=== PATIENT | female | born 1970 | race Hispanic/Latino ===

== ENCOUNTER 2021-06-12 23:44 | Inpatient (IN) | payer OTHER, SELFPAY ==
[2021-06-12] MEDS ORDERED: Senokot S 8.6-50 MG TAB PO PRN (23:50)
[2021-06-12] MEDS ORDERED: Calcium Carbonate 500 MG ChewTAB PO PRN (23:50)
[2021-06-12] MEDS ORDERED: Zolpidem Tartrate 5 MG TAB PO PRN (23:50)
[2021-06-13 00:29] VITALS: BMI 40.4
[2021-06-13] MEDS ORDERED: Pharmacy to Dose ABX/VANCOMYCIN IVPB PRN (00:38)
[2021-06-13] MEDS ORDERED: Prevnar 13-Val Conj/PF 0.5 ML SYRINGE IM ONE (00:45)
[2021-06-13] MEDS: Ondansetron PF 4 MG/2 ML Vial IVP PRN ×3 (00:45→19:44)
[2021-06-13] MEDS ORDERED: Lactated Ringer's 1,000 ML IV SCH (01:00)
[2021-06-13] MEDS: ALPRAZolam 0.25 MG TAB PO PRN ×2 (01:25→22:15)
[2021-06-13 03:29] LABS: #Monocytes 0.7 10x3/uL (0.0-1.1); #Neutrophils 9.6 10x3/uL (1.5-8.4); %Basophils 0.3 % (0.0-2.0); %Eosinophils 0.2 % (0.0-6.0); %Lymphocytes 5.9 % (18.0-47.0); %Monocytes 6.3 % (0.0-10.0); %Neutrophils 86.7 % (40.0-75.0); Hemoglobin 11.6 g/dL (12.0-15.5); Mean Corpuscular HGB CONC 33.1 g/dL (32.0-36.0); Mean Corpuscular Hemoglobin 29.1 pg (27.0-33.0); Mean Corpuscular Volume 87.7 fl (81.6-98.3); Mean Platelet Volume 11.1 fl (7.4-10.4); Platelet Count 257 10x3/uL (150-450); RBC Distribution Width 14.5 % (11.5-14.5); Red Blood Cell (RBC) Count 3.99 10x6/uL (3.90-5.03); White Blood Cell (WBC) Count 11.1 10x3/uL (3.5-10.5)
[2021-06-13 03:39] LABS: Anion Gap 13 mmol/L (10-20); BUN (Urea Nitrogen) 13 mg/dL (9.8-20.1); Calc. Creatinine Clearance 118 mL/min (70-130); Calcium 8.6 mg/dL (7.8-10.44); Carbon Dioxide 20 mmol/L (22-29); Chloride 107 mmol/L (98-107); Glucose 93 mg/dL (70-105); Sodium 136 mmol/L (136-145)
[2021-06-13] MEDS: Acetaminophen 325 MG TAB PO PRN ×2 (04:08→08:50)
[2021-06-13] MEDS: Guaifenesin DM 100-10/5 ML UDCUP PO PRN (04:09)
[2021-06-13 08:36] LABS: Legionella Urinary Ag Negative (Negative); Strep pneumo Urine Ag NEGATIVE (NEGATIVE)
[2021-06-13] MEDS: Famotidine 20 MG TAB PO SCH ×2 (08:47→22:05)
[2021-06-13] MEDS: Topiramate 25 MG TAB PO SCH ×2 (08:47→22:05)
[2021-06-13] MEDS: predniSONE 10 MG TAB PO SCH (08:48)
[2021-06-13] MEDS: Enoxaparin Sodium 40 MG/0.4 ML SYRINGE SC SCH (08:48)
[2021-06-13 08:59] LABS: SARS-CoV-2 NAA Rapid Test Not Detected (NotDetected)
[2021-06-13] MEDS: Cefepime 1 GM in Sodium Chloride 0.9% 100 ML IVPB SCH ×2 (09:23→22:02)
[2021-06-13] MEDS: traMADol HCl 50 MG TAB PO PRN ×2 (10:22→15:58)
[2021-06-13] MEDS: Lidocaine 5% Patch TD SCH (17:06)
[2021-06-13] MEDS: Gabapentin 400 MG CAP PO SCH (22:04)
[2021-06-13] MEDS: Escitalopram Oxalate 20 mg Tablet PO SCH (22:05)
[2021-06-13] MEDS: traZODone HCl 50 MG TAB PO SCH (22:05)
[2021-06-14] MEDS: HYDROcodone/Acetaminophen 5/325 mg Tablet PO PRN ×2 (01:07→11:43)
[2021-06-14] MEDS ORDERED: VANCOMYCIN 1.5 GM in Sodium Chloride 0.9% 500 ML IVPB SCH (03:00)
[2021-06-14] MEDS: Transdermal Patch Removal TOP SCH (05:00)
[2021-06-14 05:24] LABS: Anion Gap 16 mmol/L (10-20); BUN (Urea Nitrogen) 8 mg/dL (9.8-20.1); Calc. Creatinine Clearance 118 mL/min (70-130); Carbon Dioxide 20 mmol/L (22-29); Chloride 102 mmol/L (98-107); Glucose 83 mg/dL (70-105); Magnesium 1.8 mg/dL (1.6-2.6); Potassium 3.4 mmol/L (3.5-5.1); Sodium 135 mmol/L (136-145)
[2021-06-14 05:32] LABS: Hemoglobin 11.8 g/dL (12.0-15.5); Mean Corpuscular Hemoglobin 28.9 pg (27.0-33.0); Mean Corpuscular Volume 87.5 fl (81.6-98.3); Mean Platelet Volume 10.9 fl (7.4-10.4); Platelet Count 274 10x3/uL (150-450); RBC Distribution Width 14.4 % (11.5-14.5); Red Blood Cell (RBC) Count 4.09 10x6/uL (3.90-5.03); White Blood Cell (WBC) Count 9.4 10x3/uL (3.5-10.5)
[2021-06-14 05:34] LABS: CRP (Inflammatory) 41.27 mg/dL (= or < 0.5)
[2021-06-14 05:59] LABS: MDiff Complete? YES
[2021-06-14 06:04] LABS: Band 7 % (5-11); Lymphocytes 13 % (21-51); Monocytes 12 % (0-10); Neutrophil 68 % (42-75)
[2021-06-14] MEDS ORDERED: Potassium Chloride 20 MEQ TAB PO SCH (08:00)
[2021-06-14] MEDS: Famotidine 20 MG TAB PO SCH ×2 (08:53→21:22)
[2021-06-14] MEDS: Enoxaparin Sodium 40 MG/0.4 ML SYRINGE SC SCH (08:53)
[2021-06-14] MEDS: Topiramate 25 MG TAB PO SCH ×2 (08:53→21:22)
[2021-06-14] MEDS: predniSONE 10 MG TAB PO SCH (08:54)
[2021-06-14] MEDS: Cefepime 1 GM in Sodium Chloride 0.9% 100 ML IVPB SCH ×2 (09:08→21:21)
[2021-06-14] MEDS ORDERED: Lidocaine 5% Patch TD SCH (11:21)
[2021-06-14] MEDS: Lidocaine 5% Patch TD SCH (17:33)
[2021-06-14] MEDS: traZODone HCl 50 MG TAB PO SCH (21:23)
[2021-06-14] MEDS: Escitalopram Oxalate 20 mg Tablet PO SCH (21:23)
[2021-06-14] MEDS: Gabapentin 400 MG CAP PO SCH (21:23)
[2021-06-15] MEDS: HYDROcodone/Acetaminophen 5/325 mg Tablet PO PRN ×2 (01:08→13:46)
[2021-06-15 02:20] LABS: Vancomycin, Trough 8.1 ug/mL
[2021-06-15] MEDS ORDERED: Vancomycin HCl 1 GM in Sodium Chloride 0.9% 250 ML 250 ML IVPB SCH (03:00)
[2021-06-15] MEDS: Acetaminophen 325 MG TAB PO PRN ×2 (05:30→20:55)
[2021-06-15] MEDS: Transdermal Patch Removal TOP SCH (05:30)
[2021-06-15] MEDS: Cefepime 1 GM in Sodium Chloride 0.9% 100 ML IVPB SCH ×2 (09:22→22:30)
[2021-06-15] MEDS: predniSONE 10 MG TAB PO SCH (09:22)
[2021-06-15] MEDS: Topiramate 25 MG TAB PO SCH ×2 (09:22→20:56)
[2021-06-15] MEDS: Famotidine 20 MG TAB PO SCH ×2 (09:22→20:55)
[2021-06-15] MEDS: Enoxaparin Sodium 40 MG/0.4 ML SYRINGE SC SCH (09:22)
[2021-06-15] MEDS: methylPREDNISolone Sod Succ 40 MG VIAL IVP SCH ×2 (15:32→22:14)
[2021-06-15] MEDS: Lidocaine 5% Patch TD SCH (16:50)
[2021-06-15] MEDS: Escitalopram Oxalate 20 mg Tablet PO SCH (20:55)
[2021-06-15] MEDS: Gabapentin 400 MG CAP PO SCH (20:56)
[2021-06-15] MEDS: traZODone HCl 50 MG TAB PO SCH (21:42)
[2021-06-16] MEDS: HYDROcodone/Acetaminophen 5/325 mg Tablet PO PRN ×5 (00:57→21:38)
[2021-06-16 04:27] LABS: #Monocytes 0.1 10x3/uL (0.0-1.1); %Basophils 0.2 % (0.0-2.0); %Monocytes 1.8 % (0.0-10.0); %Neutrophils 89.7 % (40.0-75.0); Hemoglobin 12.4 g/dL (12.0-15.5); Mean Corpuscular HGB CONC 32.9 g/dL (32.0-36.0); Mean Corpuscular Hemoglobin 28.8 pg (27.0-33.0); Mean Corpuscular Volume 87.7 fl (81.6-98.3); Mean Platelet Volume 10.6 fl (7.4-10.4); Platelet Count 347 10x3/uL (150-450); RBC Distribution Width 14.1 % (11.5-14.5); White Blood Cell (WBC) Count 5.6 10x3/uL (3.5-10.5)
[2021-06-16 04:40] LABS: Anion Gap 13 mmol/L (10-20); BUN (Urea Nitrogen) 12 mg/dL (9.8-20.1); CRP (Inflammatory) 19.99 mg/dL (= or < 0.5); Calc. Creatinine Clearance 130 mL/min (70-130); Calcium 9.2 mg/dL (7.8-10.44); Carbon Dioxide 20 mmol/L (22-29); Chloride 109 mmol/L (98-107); Glucose 180 mg/dL (70-105); Potassium 4.3 mmol/L (3.5-5.1); Sodium 138 mmol/L (136-145)
[2021-06-16] MEDS: Transdermal Patch Removal TOP SCH (05:23)
[2021-06-16] MEDS: methylPREDNISolone Sod Succ 40 MG VIAL IVP SCH ×2 (06:22→09:05)
[2021-06-16] MEDS: Famotidine 20 MG TAB PO SCH ×2 (09:03→21:37)
[2021-06-16] MEDS: Enoxaparin Sodium 40 MG/0.4 ML SYRINGE SC SCH (09:03)
[2021-06-16] MEDS: Cefepime 1 GM in Sodium Chloride 0.9% 100 ML IVPB SCH ×2 (09:03→21:36)
[2021-06-16] MEDS: Topiramate 25 MG TAB PO SCH ×2 (09:03→21:36)
[2021-06-16] MEDS: Guaifenesin DM 100-10/5 ML UDCUP PO PRN ×2 (09:09→21:42)
[2021-06-16 14:27] LABS: Vancomycin, Trough 25.7 ug/mL
[2021-06-16] MEDS: Lidocaine 5% Patch TD SCH (17:01)
[2021-06-16] MEDS: Escitalopram Oxalate 20 mg Tablet PO SCH (21:37)
[2021-06-16] MEDS: traZODone HCl 50 MG TAB PO SCH (21:37)
[2021-06-16] MEDS: Gabapentin 400 MG CAP PO SCH (21:37)
[2021-06-17 04:41] LABS: #Monocytes 0.7 10x3/uL (0.0-1.1); #Neutrophils 9.4 10x3/uL (1.5-8.4); %Basophils 0.2 % (0.0-2.0); %Lymphocytes 8.3 % (18.0-47.0); %Monocytes 6.5 % (0.0-10.0); %Neutrophils 83.5 % (40.0-75.0); Hemoglobin 12.2 g/dL (12.0-15.5); Mean Corpuscular Hemoglobin 28.9 pg (27.0-33.0); Mean Corpuscular Volume 87.7 fl (81.6-98.3); Mean Platelet Volume 10.8 fl (7.4-10.4); Platelet Count 387 10x3/uL (150-450); RBC Distribution Width 14.1 % (11.5-14.5); Red Blood Cell (RBC) Count 4.22 10x6/uL (3.90-5.03); White Blood Cell (WBC) Count 11.3 10x3/uL (3.5-10.5)
[2021-06-17 04:44] LABS: Vancomycin, Random 15.5 ug/mL (See Comment)
[2021-06-17 04:52] LABS: Anion Gap 13 mmol/L (10-20); BUN (Urea Nitrogen) 14 mg/dL (9.8-20.1); Calc. Creatinine Clearance 130 mL/min (70-130); Calcium 9.1 mg/dL (7.8-10.44); Carbon Dioxide 21 mmol/L (22-29); Chloride 112 mmol/L (98-107); Glucose 104 mg/dL (70-105); Potassium 3.6 mmol/L (3.5-5.1); Sodium 142 mmol/L (136-145)
[2021-06-17] MEDS: Transdermal Patch Removal TOP SCH (05:15)
[2021-06-17 08:49] VITALS: BP 167/84; TEMP 96.3
[2021-06-17] MEDS: HYDROcodone/Acetaminophen 5/325 mg Tablet PO PRN (09:17)
[2021-06-17] MEDS: Topiramate 25 MG TAB PO SCH (09:19)
[2021-06-17] MEDS: Famotidine 20 MG TAB PO SCH (09:20)
[2021-06-17] MEDS: Enoxaparin Sodium 40 MG/0.4 ML SYRINGE SC SCH (09:20)
[2021-06-17] MEDS: Cefepime 1 GM in Sodium Chloride 0.9% 100 ML IVPB SCH ×2 (09:21→10:05)
[2021-06-17] MEDS: methylPREDNISolone Sod Succ 40 MG VIAL IVP SCH (09:21)
[2021-06-17] MEDS ORDERED: Vancomycin 1.5 GRAM/300 ML BAG 1.5 GM in Premix Bag 1 BAG IVPB SCH (15:00)
[2021-06-22 23:36] LABS: Mycoplasma pneumoniae IgG AB 200 U/mL (0-99); Mycoplasma pneumoniae IgM AB Less than 770 U/mL (0-769)
== END 2021-06-17 13:02 | disposition home or self-care (01) | DRG 871 ==
LOC: CSHTELE 23:44
PROVIDERS: ADMIT Student in an Organized Health Care Education/Training Program; ATTEND Internal Medicine
DX: A41.9 Sepsis, unspecified organism (principal); J18.9 Pneumonia, unspecified organism; J96.01 Acute respiratory failure with hypoxia; D84.9 Immunodeficiency, unspecified; M06.9 Rheumatoid arthritis, unspecified; M32.14 Glomerular disease in systemic lupus erythematosus; N18.1 Chronic kidney disease, stage 1; F41.9 Anxiety disorder, unspecified; F32.A Depression, unspecified; G89.29 Other chronic pain; I12.9 Hypertensive chronic kidney disease with stage 1 through stage 4 chronic kidney disease, or unspecified chronic kidney disease; M54.30 Sciatica, unspecified side; E86.0 Dehydration; E87.6 Hypokalemia; Z20.822 Contact with and (suspected) exposure to COVID-19; Z79.899 Other long term (current) drug therapy; Z90.710 Acquired absence of both cervix and uterus
CPT/HCPCS: 36415; 71046; 80048; 80202; 83735; 83880; 84145; 85025; 85652; 86140; 87081; 87449; 87899; 93005; 93010; 94760; J0692; J1650; J1956; J2405; J2920; J3370; J3490; J7030; J7050; J7120; J7512; U0002

== ENCOUNTER 2021-08-24 10:39 | Inpatient (IN) | payer OTHER ==
[2021-08-24] MEDS ORDERED: Piperacillin/Tazobactam 3.375 GM VIAL ONE (11:25)
[2021-08-24] MEDS ORDERED: Morphine 4 MG/ML VIAL ONE ×2 (11:25→14:22)
[2021-08-24 11:34] LABS: #Basophils 0.1 10x3/uL (0.0-0.2); #Eosinphils 0.1 10x3/uL (0.0-0.5); #Monocytes 1.4 10x3/uL (0.0-1.1); #Neutrophils 13.3 10x3/uL (1.5-8.4); %Basophils 0.3 % (0.0-2.0); %Eosinophils 0.5 % (0.0-6.0); %Lymphocytes 9.8 % (18.0-47.0); %Monocytes 8.3 % (0.0-10.0); %Neutrophils 80.4 % (40.0-75.0); Hemoglobin 14.2 g/dL (12.0-15.5); Mean Corpuscular HGB CONC 33.2 g/dL (32.0-36.0); Mean Corpuscular Volume 87.3 fl (81.6-98.3); Mean Platelet Volume 11.7 fl (7.4-10.4); Platelet Count 284 10x3/uL (150-450); RBC Distribution Width 14.6 % (11.5-14.5); White Blood Cell (WBC) Count 16.6 10x3/uL (3.5-10.5)
[2021-08-24] MEDS ORDERED: Ondansetron PF 4 MG/2 ML Vial ONE (11:38)
[2021-08-24 11:53] LABS: ALT (SGPT) 20 U/L (8-55); AST (SGOT) 19 U/L (5-34); Albumin 3.9 g/dL (3.5-5.0); Alkaline Phosphatase 76 U/L (40-110); Anion Gap 21 mmol/L (10-20); BUN (Urea Nitrogen) 26 mg/dL (9.8-20.1); Bilirubin, Total 0.7 mg/dL (0.2-1.2); CK (CPK) 22 U/L (29-168); Calc. Creatinine Clearance 0 mL/min (70-130); Calcium 9.4 mg/dL (7.8-10.44); Carbon Dioxide 23 mmol/L (22-29); Chloride 96 mmol/L (98-107); Glucose 88 mg/dL (70-105); Lipase 34 U/L (8-78); Protein, Total 7.9 g/dL (6.0-8.3); Sodium 137 mmol/L (136-145)
[2021-08-24 13:14] LABS: Bilirubin Neg (Negative); Blood, Urine 10 (Negative); Clarity Slightly Cloudy (Clear); Glucose, Urine (Dipstick) Normal (Negative); Ketone, Urine Negative (Negative); Leukocyte 500 (Negative); Nitrite Negative (Negative); Protein, Urine (Dipstick) 15 mg/dl (Neg-Trace); Specific Gravity, Urine 1.015 (1.002-1.036); Urobilinogen Normal mg/dL (Less than 2)
[2021-08-24 13:23] LABS: Bacteria/HPF 2+ HPF (None Seen); RBC/HPF 0-3 HPF (0-3)
[2021-08-24] MEDS ORDERED: Ondansetron PF 4 MG/2 ML Vial IVP PRN (13:50)
[2021-08-24] MEDS ORDERED: Dexamethasone 10 MG/ML VIAL ONE (13:55)
[2021-08-24] MEDS ORDERED: Metoclopramide HCl 10 MG/2 ML VIAL ONE (13:56)
[2021-08-24 14:01] LABS: SARS-CoV-2 NAA Rapid Test Not Detected (NotDetected)
[2021-08-24] MEDS ORDERED: Potassium Chloride 20 MEQ in Premix Bag 1 BAG IVPB SCH (15:00)
[2021-08-24] MEDS: Sodium Chloride 0.9% 1,000 ML IV SCH ×2 (15:15→23:07)
[2021-08-24 15:30] LABS: Magnesium 1.9 mg/dL (1.6-2.6)
[2021-08-24] MEDS: Piperacillin/Tazobactam 3.375 GM in Sodium Chloride 0.9% 100 ML IVPB SCH (15:50)
[2021-08-24 17:04] VITALS: BMI 37.5
[2021-08-24 18:10] VITALS: BP 107/71; TEMP 97
[2021-08-24 18:58] LABS: Potassium 3.6 mmol/L (3.5-5.1)
[2021-08-24] MEDS ORDERED: Prevnar 13-Val Conj/PF 0.5 ML SYRINGE IM ONE (19:00)
[2021-08-24] MEDS: Famotidine 20 MG TAB PO SCH (20:56)
[2021-08-24] MEDS: predniSONE 10 MG TAB PO SCH (20:56)
[2021-08-24] MEDS: ALPRAZolam 0.25 MG TAB PO PRN (22:54)
[2021-08-25] MEDS: Sodium Chloride 0.9% 1,000 ML IV SCH ×2 (00:10→16:14)
[2021-08-25] MEDS: Piperacillin/Tazobactam 3.375 GM in Sodium Chloride 0.9% 100 ML IVPB SCH ×3 (00:15→16:26)
[2021-08-25 04:05] LABS: #Monocytes 0.2 10x3/uL (0.0-1.1); #Neutrophils 12.5 10x3/uL (1.5-8.4); %Basophils 0.2 % (0.0-2.0); %Lymphocytes 3.5 % (18.0-47.0); %Monocytes 1.2 % (0.0-10.0); %Neutrophils 94.3 % (40.0-75.0); Hemoglobin 13.3 g/dL (12.0-15.5); Mean Corpuscular Hemoglobin 28.5 pg (27.0-33.0); Mean Corpuscular Volume 88.9 fl (81.6-98.3); Mean Platelet Volume 11.3 fl (7.4-10.4); Platelet Count 255 10x3/uL (150-450); RBC Distribution Width 14.4 % (11.5-14.5); Red Blood Cell (RBC) Count 4.67 10x6/uL (3.90-5.03); White Blood Cell (WBC) Count 13.2 10x3/uL (3.5-10.5)
[2021-08-25 04:27] LABS: Anion Gap 16 mmol/L (10-20); BUN (Urea Nitrogen) 16 mg/dL (9.8-20.1); Calc. Creatinine Clearance 103 mL/min (70-130); Calcium 8.5 mg/dL (7.8-10.44); Carbon Dioxide 21 mmol/L (22-29); Chloride 108 mmol/L (98-107); Glucose 118 mg/dL (70-105); Potassium 3.8 mmol/L (3.5-5.1); Sodium 141 mmol/L (136-145)
[2021-08-25] MEDS: Famotidine 20 MG TAB PO SCH ×2 (08:27→21:00)
[2021-08-25] MEDS: Acetaminophen 325 MG TAB PO PRN (12:23)
[2021-08-25] MEDS ORDERED: Enoxaparin Sodium 40 MG/0.4 ML SYRINGE SC SCH (16:00)
[2021-08-25] MEDS: Famotidine 20 MG TAB ONE ×2 (20:52→21:00)
[2021-08-25] MEDS: Nystatin Powder 15 GM BOT TOP SCH (20:53)
[2021-08-25] MEDS: ALPRAZolam 0.25 MG TAB PO PRN (20:56)
[2021-08-25] MEDS: predniSONE 10 MG TAB PO SCH (21:00)
[2021-08-26] MEDS: Acetaminophen 325 MG TAB PO PRN ×2 (00:21→04:38)
[2021-08-26] MEDS: Piperacillin/Tazobactam 3.375 GM in Sodium Chloride 0.9% 100 ML IVPB SCH ×2 (00:26→07:46)
[2021-08-26 04:25] LABS: #Monocytes 0.6 10x3/uL (0.0-1.1); #Neutrophils 9.8 10x3/uL (1.5-8.4); %Basophils 0.1 % (0.0-2.0); %Eosinophils 0.1 % (0.0-6.0); %Monocytes 5.2 % (0.0-10.0); %Neutrophils 87.2 % (40.0-75.0); Hemoglobin 11.8 g/dL (12.0-15.5); Mean Corpuscular HGB CONC 33.1 g/dL (32.0-36.0); Mean Corpuscular Hemoglobin 28.2 pg (27.0-33.0); Mean Corpuscular Volume 85.2 fl (81.6-98.3); Mean Platelet Volume 11.2 fl (7.4-10.4); Platelet Count 252 10x3/uL (150-450); RBC Distribution Width 14.3 % (11.5-14.5); Red Blood Cell (RBC) Count 4.18 10x6/uL (3.90-5.03); White Blood Cell (WBC) Count 11.2 10x3/uL (3.5-10.5)
[2021-08-26 04:37] LABS: Anion Gap 13 mmol/L (10-20); BUN (Urea Nitrogen) 13 mg/dL (9.8-20.1); Calc. Creatinine Clearance 117 mL/min (70-130); Calcium 8.7 mg/dL (7.8-10.44); Carbon Dioxide 23 mmol/L (22-29); Chloride 110 mmol/L (98-107); Glucose 124 mg/dL (70-105); Potassium 3.3 mmol/L (3.5-5.1); Sodium 143 mmol/L (136-145)
[2021-08-26] MEDS ORDERED: Potassium Chloride 20 MEQ TAB PO SCH (06:15)
[2021-08-26] MEDS: Famotidine 20 MG TAB PO SCH (07:46)
[2021-08-26] MEDS: ALPRAZolam 0.25 MG TAB PO PRN (07:46)
[2021-08-26] MEDS: Nystatin Powder 15 GM BOT TOP SCH (08:28)
[2021-08-26] MEDS ORDERED: Amlodipine 5 MG TAB PO SCH (12:15)
== END 2021-08-26 15:55 | disposition home or self-care (01) | DRG 392 ==
LOC: CSHERS 10:39 → CSHICU 14:09
PROVIDERS: ADMIT Internal Medicine; ATTEND Internal Medicine
DX: K57.32 Diverticulitis of large intestine without perforation or abscess without bleeding (principal); D84.9 Immunodeficiency, unspecified; N17.9 Acute kidney failure, unspecified; E86.0 Dehydration; E87.6 Hypokalemia; F41.9 Anxiety disorder, unspecified; F32.A Depression, unspecified; M06.9 Rheumatoid arthritis, unspecified; I12.9 Hypertensive chronic kidney disease with stage 1 through stage 4 chronic kidney disease, or unspecified chronic kidney disease; M32.9 Systemic lupus erythematosus, unspecified; N18.9 Chronic kidney disease, unspecified; Z20.822 Contact with and (suspected) exposure to COVID-19; Z79.899 Other long term (current) drug therapy; Z87.01 Personal history of pneumonia (recurrent); Z98.891 History of uterine scar from previous surgery; Z98.890 Other specified postprocedural states; Z79.52 Long term (current) use of systemic steroids
CPT/HCPCS: 36415; 74176; 80048; 80053; 81003; 81015; 82550; 83605; 83690; 83735; 85025; 87040; 87086; 93005; 96361; 96365; 96367; 96375; 96376; J1100; J1650; J2270; J2405; J2543; J2765; J3480; J3490; J7050; J7512; U0002

== ENCOUNTER 2021-09-07 20:43 | Emergency (ER) | payer OTHER, SELFPAY ==
[2021-09-07 21:57] LABS: Hemoglobin 13.5 g/dL (12.0-15.5); Mean Corpuscular HGB CONC 32.9 g/dL (32.0-36.0); Mean Corpuscular Hemoglobin 28.3 pg (27.0-33.0); Mean Platelet Volume 11.1 fl (7.4-10.4); Platelet Count 330 10x3/uL (150-450); RBC Distribution Width 15.1 % (11.5-14.5); Red Blood Cell (RBC) Count 4.77 10x6/uL (3.90-5.03); White Blood Cell (WBC) Count 7.3 10x3/uL (3.5-10.5)
[2021-09-07 21:59] LABS: MDiff Complete? YES
[2021-09-07 22:12] LABS: ALT (SGPT) 33 U/L (8-55); AST (SGOT) 33 U/L (5-34); Albumin 3.8 g/dL (3.5-5.0); Alkaline Phosphatase 84 U/L (40-110); Anion Gap 17 mmol/L (10-20); BUN (Urea Nitrogen) 17 mg/dL (9.8-20.1); Bilirubin, Total 0.3 mg/dL (0.2-1.2); Calc. Creatinine Clearance 0 mL/min (70-130); Carbon Dioxide 26 mmol/L (22-29); Chloride 102 mmol/L (98-107); Globulin 3.1 g/dL (2.4-3.5); Glucose 103 mg/dL (70-105); Protein, Total 6.9 g/dL (6.0-8.3); Sodium 142 mmol/L (136-145)
[2021-09-07 22:14] LABS: Potassium 2.8 mmol/L (3.5-5.1)
[2021-09-07 22:27] LABS: Eosinophils 2 % (0-10); Lymphocytes 25 % (21-51); Monocytes 13 % (0-10); Neutrophil 59 % (42-75); Reactive Lymphocytes 1 % (0-10)
[2021-09-07 22:29] LABS: Platelet Morphology Comment Appears Adequate; RBC Morphology Normal
[2021-09-07] MEDS ORDERED: Potassium Chloride 20 MEQ TAB ONE (22:33)
== END 2021-09-07 22:40 | disposition home or self-care (01) ==
LOC: CSHERS 20:43
DX: E87.6 Hypokalemia (principal); I12.9 Hypertensive chronic kidney disease with stage 1 through stage 4 chronic kidney disease, or unspecified chronic kidney disease; N18.9 Chronic kidney disease, unspecified
CPT/HCPCS: 80053; 85025; 99284

== ENCOUNTER 2021-09-15 09:45 | Observation (INO) | payer SELFPAY ==
[~2021-09-15 09:45] MED LIST: Iopamidol 300 61% 100 ML VIAL FS ONE
[2021-09-15] MEDS ORDERED: Ondansetron PF 4 MG/2 ML Vial ONE (11:04)
[2021-09-15] MEDS ORDERED: Morphine 4 MG/ML VIAL ONE ×2 (11:04→12:18)
[2021-09-15 11:05] LABS: #Basophils 0.1 10x3/uL (0.0-0.2); #Eosinphils 0.1 10x3/uL (0.0-0.5); #Monocytes 1.2 10x3/uL (0.0-1.1); #Neutrophils 9.8 10x3/uL (1.5-8.4); %Basophils 0.4 % (0.0-2.0); %Eosinophils 0.8 % (0.0-6.0); %Lymphocytes 11.6 % (18.0-47.0); %Monocytes 9.3 % (0.0-10.0); %Neutrophils 77.2 % (40.0-75.0); Hemoglobin 12.9 g/dL (12.0-15.5); Mean Corpuscular HGB CONC 32.1 g/dL (32.0-36.0); Mean Corpuscular Hemoglobin 28.4 pg (27.0-33.0); Mean Corpuscular Volume 88.5 fl (81.6-98.3); Platelet Count 253 10x3/uL (150-450); RBC Distribution Width 15.4 % (11.5-14.5); Red Blood Cell (RBC) Count 4.54 10x6/uL (3.90-5.03); White Blood Cell (WBC) Count 12.7 10x3/uL (3.5-10.5)
[2021-09-15 11:24] LABS: ALT (SGPT) 19 U/L (8-55); AST (SGOT) 14 U/L (5-34); Albumin 3.5 g/dL (3.5-5.0); Alkaline Phosphatase 66 U/L (40-110); Anion Gap 15 mmol/L (10-20); BUN (Urea Nitrogen) 12 mg/dL (9.8-20.1); Bilirubin, Total 0.6 mg/dL (0.2-1.2); Calc. Creatinine Clearance 0 mL/min (70-130); Calcium 9.1 mg/dL (7.8-10.44); Carbon Dioxide 23 mmol/L (22-29); Chloride 104 mmol/L (98-107); Estimated GFR 59; Globulin 2.8 g/dL (2.4-3.5); Glucose 86 mg/dL (70-105); Lipase 31 U/L (8-78); Potassium 4.2 mmol/L (3.5-5.1); Protein, Total 6.3 g/dL (6.0-8.3); Sodium 138 mmol/L (136-145)
[2021-09-15 12:20] LABS: Bilirubin Neg (Negative); Blood, Urine 10 (Negative); Clarity Clear (Clear); Glucose, Urine (Dipstick) Normal (Negative); Ketone, Urine 5 mg/dL (Negative); Leukocyte 500 (Negative); Nitrite Negative (Negative); Protein, Urine (Dipstick) 15 mg/dl (Neg-Trace); Urobilinogen Normal mg/dL (Less than 2)
[2021-09-15 12:35] LABS: Bacteria/HPF 3+ HPF (None Seen); Mucous/LPF 2+ LPF (<2+); RBC/HPF 0-3 HPF (0-3); Transitional Epithelial 0-3 HPF (None Seen); WBC/HPF 21-50 HPF (0-3)
[2021-09-15] MEDS ORDERED: metroNIDAZOLE 500 MG/100 ML BAG ONE (12:38)
[2021-09-15] MEDS ORDERED: Ondansetron ODT 4 MG TAB PO PRN (13:22)
[2021-09-15] MEDS ORDERED: Ondansetron PF 4 MG/2 ML Vial IVP PRN (13:22)
[2021-09-15] MEDS ORDERED: hydrALAZINE 20 MG/ML VIAL SLOW IVP PRN (13:36)
[2021-09-15] MEDS ORDERED: Vancomycin 25 MG/ML Oral SOLN PO SCH (14:00)
[2021-09-15] MEDS ORDERED: Piperacillin/Tazobactam 3.375 GM in Sodium Chloride 0.9% 100 ML IVPB SCH ×2 (14:00→16:00)
[2021-09-15 14:02] LABS: SARS-CoV-2 NAA Rapid Test Not Detected (NotDetected)
[2021-09-15 15:09] VITALS: BMI 35.9
[2021-09-15] MEDS: Sodium Chloride 0.9% 1,000 ML IV SCH (16:46)
[2021-09-15] MEDS: Vancomycin 25 MG/ML Oral SOLN PO SCH ×2 (16:48→21:34)
[2021-09-15] MEDS: Morphine 2 MG/ML VIAL SLOW IVP PRN (17:53)
[2021-09-15] MEDS: Piperacillin/Tazobactam 3.375 GM in Sodium Chloride 0.9% 100 ML IVPB SCH (21:34)
[2021-09-16] MEDS: Sodium Chloride 0.9% 1,000 ML IV SCH ×3 (03:48→22:27)
[2021-09-16] MEDS: Piperacillin/Tazobactam 3.375 GM in Sodium Chloride 0.9% 100 ML IVPB SCH ×3 (04:41→21:06)
[2021-09-16] MEDS: Vancomycin 25 MG/ML Oral SOLN PO SCH ×2 (04:41→08:23)
[2021-09-16 05:41] LABS: #Monocytes 0.6 10x3/uL (0.0-1.1); #Neutrophils 8.7 10x3/uL (1.5-8.4); %Basophils 0.3 % (0.0-2.0); %Eosinophils 0.2 % (0.0-6.0); %Lymphocytes 5.6 % (18.0-47.0); %Monocytes 5.6 % (0.0-10.0); %Neutrophils 87.7 % (40.0-75.0); Hemoglobin 12.7 g/dL (12.0-15.5); Mean Corpuscular HGB CONC 30.9 g/dL (32.0-36.0); Mean Corpuscular Hemoglobin 28.3 pg (27.0-33.0); Mean Corpuscular Volume 91.5 fl (81.6-98.3); Platelet Count 221 10x3/uL (150-450); RBC Distribution Width 15.2 % (11.5-14.5); Red Blood Cell (RBC) Count 4.49 10x6/uL (3.90-5.03); White Blood Cell (WBC) Count 9.9 10x3/uL (3.5-10.5)
[2021-09-16] MEDS: Acetaminophen 325 MG TAB PO PRN ×3 (05:57→21:07)
[2021-09-16 06:04] LABS: Anion Gap 15 mmol/L (10-20); BUN (Urea Nitrogen) 7 mg/dL (9.8-20.1); Calc. Creatinine Clearance 102 mL/min (70-130); Calcium 8.5 mg/dL (7.8-10.44); Carbon Dioxide 15 mmol/L (22-29); Chloride 114 mmol/L (98-107); Estimated GFR 79; Glucose 114 mg/dL (70-105); Potassium 4.6 mmol/L (3.5-5.1); Sodium 139 mmol/L (136-145)
[2021-09-16] MEDS ORDERED: Sodium Chloride 0.9% 1,000 ML IV SCH (07:30)
[2021-09-16] MEDS: Famotidine/PF 20 mg/2ml Vial SLOW IVP SCH (08:22)
[2021-09-16 09:43] LABS: ALT (SGPT) 10 U/L (8-55); AST (SGOT) 11 U/L (5-34); Alkaline Phosphatase 56 U/L (40-110); Bilirubin, Direct 0.2 mg/dL (0.1-0.3); Bilirubin, Total 0.4 mg/dL (0.2-1.2); Protein, Total 5.9 g/dL (6.0-8.3)
[2021-09-16] MEDS ORDERED: ALPRAZolam 0.25 MG TAB PO PRN (10:04)
[2021-09-16] MEDS ORDERED: traMADol HCl 50 MG TAB PO PRN (10:04)
[2021-09-16 12:32] LABS: Hemoglobin A1c 5.6 % (4.0-6.0)
[2021-09-16] MEDS ORDERED: predniSONE 10 MG TAB PO SCH (21:00)
[2021-09-16] MEDS: Topiramate 25 MG TAB PO SCH (21:06)
[2021-09-16 21:43] LABS: Campy jejuni + coli by PCR Negative (Negative); STEC Shiga Toxin 1+2 Negative (Negative); Salmonella spp. by PCR Negative (Negative); Shigella spp + EIEC by PCR Negative (Negative)
[2021-09-16] MEDS: Morphine 2 MG/ML VIAL SLOW IVP PRN (22:04)
[2021-09-17] MEDS: Piperacillin/Tazobactam 3.375 GM in Sodium Chloride 0.9% 100 ML IVPB SCH (03:57)
[2021-09-17 04:10] LABS: Actual Bicarbonate (HCO3v) 19 mEq/L (22-28); Base Excess -5.9 mEq/L (-2.0 to +3.0); Calcium, Ionized (venous) 1.15 mmol/L (1.16-1.32); Chloride (VBG) 111 mmol/L (98-106); Hemoglobin (Hb) 12.8 g/dL (11.7-16.0); Potassium (VBG) 3.76 mmol/L (3.70-5.30); Puncture Site Other Site; pH (venous) 7.36 (7.32-7.43)
[2021-09-17 04:16] LABS: #Eosinphils 0.1 10x3/uL (0.0-0.5); #Monocytes 0.3 10x3/uL (0.0-1.1); #Neutrophils 7.7 10x3/uL (1.5-8.4); %Basophils 0.3 % (0.0-2.0); %Eosinophils 0.7 % (0.0-6.0); %Lymphocytes 4.9 % (18.0-47.0); %Monocytes 3.4 % (0.0-10.0); Hemoglobin 11.6 g/dL (12.0-15.5); Mean Corpuscular HGB CONC 31.2 g/dL (32.0-36.0); Mean Corpuscular Hemoglobin 27.9 pg (27.0-33.0); Mean Corpuscular Volume 89.4 fl (81.6-98.3); Mean Platelet Volume 11.3 fl (7.4-10.4); Platelet Count 250 10x3/uL (150-450); RBC Distribution Width 14.8 % (11.5-14.5); Red Blood Cell (RBC) Count 4.16 10x6/uL (3.90-5.03); White Blood Cell (WBC) Count 8.6 10x3/uL (3.5-10.5)
[2021-09-17 04:31] LABS: ALT (SGPT) 11 U/L (8-55); AST (SGOT) 11 U/L (5-34); Alkaline Phosphatase 56 U/L (40-110); Anion Gap 13 mmol/L (10-20); BUN (Urea Nitrogen) 5 mg/dL (9.8-20.1); Bilirubin, Total 0.3 mg/dL (0.2-1.2); CRP (Inflammatory) 9.31 mg/dL (= or < 0.5); Calc. Creatinine Clearance 126 mL/min (70-130); Calcium 8.3 mg/dL (7.8-10.44); Carbon Dioxide 20 mmol/L (22-29); Cardiac Risk 4.3 (Less than 4.5); Chloride 113 mmol/L (98-107); Cholesterol 146 mg/dl (< 200 Desired); Estimated GFR 102; Globulin 2.8 g/dL (2.4-3.5); Glucose 104 mg/dL (70-105); HDL Cholesterol 34 mg/dL (>60 Neg Risk); LDL Cholesterol, Calculated 89 mg/dL; Magnesium 1.7 mg/dL (1.6-2.6); Potassium 3.8 mmol/L (3.5-5.1); Protein, Total 5.8 g/dL (6.0-8.3); Sodium 142 mmol/L (136-145); Triglycerides 114 mg/dL (Less than 150)
[2021-09-17] MEDS: Famotidine/PF 20 mg/2ml Vial SLOW IVP SCH (08:08)
[2021-09-17] MEDS: Acetaminophen 325 MG TAB PO PRN (08:09)
[2021-09-17] MEDS: Topiramate 25 MG TAB PO SCH (08:09)
[2021-09-17] MEDS ORDERED: Enoxaparin Sodium 40 MG/0.4 ML SYRINGE SC SCH (09:00)
[2021-09-17] MEDS: Amoxicillin/Potassium Clav 875 MG TAB PO SCH ×2 (11:52→18:30)
[2021-09-17] MEDS ORDERED: Amoxicillin/Potassium Clav 875 MG TAB PO SCH (14:00)
[2021-09-17] MEDS ORDERED: Gabapentin 300 MG CAP PO SCH (15:00)
[2021-09-17 16:06] VITALS: BP 128/59; TEMP 97.1
[2021-09-18] MEDS ORDERED: Amlodipine 5 MG TAB PO SCH (09:00)
== END 2021-09-17 18:33 | disposition home or self-care (01) ==
LOC: CSHERS 09:45 → CSHTELE 14:37
PROVIDERS: ADMIT Family Medicine; ATTEND Family Medicine
DX: K57.92 Diverticulitis of intestine, part unspecified, without perforation or abscess without bleeding (principal); R82.90 Unspecified abnormal findings in urine; M32.9 Systemic lupus erythematosus, unspecified; M06.9 Rheumatoid arthritis, unspecified; I12.9 Hypertensive chronic kidney disease with stage 1 through stage 4 chronic kidney disease, or unspecified chronic kidney disease; N18.30 Chronic kidney disease, stage 3 unspecified; N17.9 Acute kidney failure, unspecified; R79.89 Other specified abnormal findings of blood chemistry; G89.29 Other chronic pain; M54.9 Dorsalgia, unspecified; Z91.14 Patient's other noncompliance with medication regimen; Z79.899 Other long term (current) drug therapy; Z88.8 Allergy status to other drugs, medicaments and biological substances; Z20.822 Contact with and (suspected) exposure to COVID-19
CPT/HCPCS: 36415; 71045; 74177; 80048; 80053; 80061; 80076; 81003; 81015; 82805; 83036; 83630; 83690; 83735; 83880; 84443; 84484; 85025; 85652; 86140; 87040; 87077; 87086; 87186; 87324; 87328; 87329; 87449; 87505; 93005; 93010; 94760; 96372; 96374; 96375; 96376; G0378; J1650; J2270; J2405; J2543; J3490; J7050; J7512; Q9967; S0028; U0002

== ENCOUNTER 2023-01-31 09:35 | Emergency (ER) | payer BC, OTHER ==
[2023-01-31] MEDS ORDERED: HYDROmorphone 0.5 MG/0.5 ML SYRINGE ONE (10:56)
== END 2023-01-31 12:45 | disposition home or self-care (01) ==
LOC: CSHERS 09:35
DX: M25.572 Pain in left ankle and joints of left foot (principal); I12.9 Hypertensive chronic kidney disease with stage 1 through stage 4 chronic kidney disease, or unspecified chronic kidney disease; N18.9 Chronic kidney disease, unspecified
CPT/HCPCS: 96372; J1170

== ENCOUNTER 2023-08-14 15:32 | Emergency (ER) | payer BC ==
[2023-08-14] MEDS ORDERED: Ketorolac Tromethamine 30 MG (1 mL) VIAL ONE (16:17)
[2023-08-14 16:48] LABS: #Basophils 0.08 10x3/uL (0.0-0.2); #Eosinphils 0.34 10x3/uL (0.0-0.5); #Neutrophils 5.08 10x3/uL (1.5-8.4); %Basophils 1.1 % (0.0-2.0); %Eosinophils 4.5 % (0.0-6.0); %Lymphocytes 13.6 % (18.0-47.0); %Neutrophils 67.6 % (40.0-75.0); Hematocrit 40.4 % (34.9-44.5); Hemoglobin 12.7 g/dL (12.0-15.5); Mean Corpuscular HGB CONC 31.4 g/dL (32.0-36.0); Mean Corpuscular Hemoglobin 27.7 pg (27.0-33.0); Mean Corpuscular Volume 88.2 fL (81.6-98.3); Mean Platelet Volume 12.2 fL (7.4-10.4); Platelet Count 183 10x3/uL (150-450); RBC Distribution Width 16.9 % (11.5-14.5); Red Blood Cell (RBC) Count 4.58 10x6/uL (3.90-5.03); White Blood Cell (WBC) Count 7.5 10x3/uL (3.5-10.5)
[2023-08-14 17:02] LABS: Anion Gap 13 mmol/L (10-20); BUN (Urea Nitrogen) 52 mg/dL (9.8-20.1); Calc. Creatinine Clearance 0 mL/min (70-130); Calcium 9.1 mg/dL (7.8-10.44); Carbon Dioxide 24 mmol/L (22-29); Chloride 103 mmol/L (98-107); Estimated GFR 38; Glucose 102 mg/dL (70-105); Potassium 3.1 mmol/L (3.5-5.1); Sodium 137 mmol/L (136-145)
[2023-08-14] MEDS ORDERED: Potassium Chloride 20 MEQ TAB ONE (17:15)
[2023-08-14] MEDS ORDERED: cefTRIAXone (ROCEPHIN) 1 GM VIAL ONE (17:27)
[2023-08-14 18:01] LABS: Bilirubin Neg (Negative); Blood, Urine Negative (Negative); Clarity Slightly Cloudy (Clear); Glucose, Urine (Dipstick) Normal (Negative); Ketone, Urine Negative (Negative); Leukocyte 25 (Negative); Nitrite Negative (Negative); Protein, Urine (Dipstick) 100 mg/dl (Neg-Trace); Urobilinogen Normal mg/dL (Less than 2)
[2023-08-14 18:27] LABS: CAUTI Indications for Culture Pelvic or flank pain; RBC/HPF 0-3 HPF (0-3); WBC/HPF 0-3 HPF (0-3)
[2023-08-14 18:29] LABS: Bacteria/HPF 2+ HPF (None Seen); Yeast-Budding Rare HPF (None Seen)
[2023-08-14 18:30] LABS: Mucous/LPF Rare LPF (<2+)
[2023-08-14 18:31] LABS: Urine Culture Reflex No No
== END 2023-08-14 18:47 | disposition home or self-care (01) ==
LOC: CSHERS 15:32
DX: M70.51 Other bursitis of knee, right knee (principal); N39.0 Urinary tract infection, site not specified; E86.0 Dehydration; I95.9 Hypotension, unspecified; I12.9 Hypertensive chronic kidney disease with stage 1 through stage 4 chronic kidney disease, or unspecified chronic kidney disease; N18.9 Chronic kidney disease, unspecified
CPT/HCPCS: 36415; 80048; 81001; 83605; 85025; 87040; 93005; 96361; 96365; 96375; J0696; J1885

== ENCOUNTER 2025-02-18 11:58 | Emergency (ER) | payer BC, MEDICARE ==
[2025-02-18] MEDS ORDERED: cloNIDine 0.1 MG TAB ONE ×2 (12:35→12:41)
[2025-02-18] MEDS ORDERED: HYDROcodone/Acetaminophen 5/325 mg Tablet ONE (12:35)
== END 2025-02-18 13:45 ==
LOC: CSHERS 11:58
DX: S30.0XXA Contusion of lower back and pelvis, initial encounter (principal); I12.9 Hypertensive chronic kidney disease with stage 1 through stage 4 chronic kidney disease, or unspecified chronic kidney disease; N18.1 Chronic kidney disease, stage 1; E66.01 Morbid (severe) obesity due to excess calories; M06.9 Rheumatoid arthritis, unspecified; W19.XXXA Unspecified fall, initial encounter
CPT/HCPCS: 72100; 99283